=== PATIENT | male | born 1995 | race Caucasian/White ===

== ENCOUNTER 2017-06-15 11:06 | Observation (INO) | payer OTHER ==
--- NOTE | 2017-06-15 11:28 | EDPHY ---
H & P Stated Complaint: cough/fever chest pain/dyspnea/surgery 2 weeks ago Time Seen by Provider: 06/15/17 11:27 HPI/ROS: HPI: This is a 21-year-old male who presents with Chief Complaint: cough/fever chest pain/dyspnea/surgery 2 weeks ago Location: Chest Quality: Cough Duration: 1 day Signs and Symptoms: no shortness of breath at rest, no shortness of breath on exertion, + nonproductive cough, + pleuritic chest pain, no palpitations, no lower extremity edema, no wheezing, no orthopnea, no paroxysmal nocturnal dyspnea, + fever, no injury/trauma, no hemoptysis, no carpal pedal spasms Timing: Acute, constant Severity: Moderate Context: Patient reports that he status post appendectomy 2 weeks ago presents with sudden onset of fever yesterday of 103 F oral accompanied by generalized body aches, fatigue and nonproductive cough. Patient reports that his roommate had similar symptoms that started 2 days ago. His roommate went to the hospital , given IV fluids and diagnosed with a viral syndrome. Patient reports that he took ibuprofen last night and his fever went away. He reports he has been drinking lots of Pedialyte fluids to prevent dehydration. He denies lower extremity edema/abdominal pain/nausea/vomiting. No history of lung disease. He complains of pain with coughing anterior and posterior chest. Modifying Factors: See above Comment: ROS: see HPI Constitutional:+ fever, no chills, no weight loss Eyes: No blurred vision Respiratory: No shortness of breath, + cough Cardiovascular: + chest pain, no palpitations, no lower extremity edema Gastrointestinal: No nausea, no vomiting, no diarrhea Genitourinary: No dysuria Extremities: No myalgias Neurologic: No weakness, no numbness Skin: No rashes Hematologic: No bruising, no bleeding MEDICAL/SURGICAL/SOCIAL HISTORY: Medical history: Generally healthy. Does not take any regular medications. Surgical history: Appendectomy Social history: Former smoker. Family history noncontributory CONSTITUTIONAL: Polite and cooperative ill but nontoxic-appearing teenage white male, awake and alert, no obvious distress HEENT: Atraumatic and normocephalic, PERRL, EOMI. Nares patent; no rhinorrhea; no nasal mucosal edema. Tympanic membranes clear. Oropharynx clear, no tonsillar hypertrophy; no exudate and moist pink mucosa. Airway patent. No lymphadenopathy. No meningismus. Cardiovascular: Normal S1/S2, regular rate, regular rhythm, without murmur rub or gallop. PULMONARY/CHEST: Symmetrical and nontender. Clear to auscultation bilaterally. Good air movement. No accessory muscle usage. ABDOMEN: Soft, nondistended, nontender, no rebound, no guarding, no peritoneal signs, no masses or organomegaly. No CVAT. EXTREMITIES: 2/2 pulses, strength 5/5, no deformities, no clubbing, no cyanosis or edema. NEUROLOGICAL: no focal neuro deficits. GCS 15. SKIN: Warm and dry, no erythema. no rash. Good capillary refill. Source: Patient Exam Limitations: No limitations - Personal History Current Tetanus/Diphtheria Vaccine: Yes - Medical/Surgical History Hx Asthma: No Hx Chronic Respiratory Disease: No Hx Diabetes: No Hx Cardiac Disease: No Hx Renal Disease: No Hx Cirrhosis: No Hx Alcoholism: No Hx HIV/AIDS: No Hx Splenectomy or Spleen Trauma: No Other PMH: appy - Social History Smoking Status: Former smoker Constitutional: Initial Vital Signs Temperature (C) 36.4 C 06/15/17 11:10 Heart Rate 77 06/15/17 11:10 Respiratory Rate 18 06/15/17 11:10 Blood Pressure 123/74 H 06/15/17 11:10 O2 Sat (%) 98 06/15/17 11:10 O2 Delivery Mode Room Air Allergies/Adverse Reactions: No Known Allergies Allergy (Verified 06/15/17 11:09) Home Medications: Medication Instructions Recorded NK [No Known Home Meds] 06/15/17 Medical Decision Making - Diagnostics EKG Interpretation: 12 lead EKG: Indication: Chest pain Rhythm: Normal sinus rhythm, rate 88 beats per minute [place]: Normal Intervals: Normal QRS: Normal ST segments: Normal T-waves: normal INTERPRETATION: Normal EKG The 12 lead EKG was interpreted by myself and with attending Imaging Results: Imaging Impressions Chest X-Ray 06/15/17 11:28 Impression: Progressive pneumonia x 3 weeks. ED Course/Re-evaluation: Vital signs reviewed and stable. O2 sats 90% on room air Given 1 L normal saline, p.o. Percocet, IV Toradol 30 mg EKG, Labs including D-dimer to rule out VTE (no tachycardia/hypoxia/lower extremity edema), chest x-ray ordered 1146: Labs reviewed show WBC of 19.15 with left shift; lactic acid 2.5; D- dimer unremarkable Normal saline 30 mL per kg ordered; given 2.5 L of normal saline Chest x-ray my read shows bilateral pneumonia; blood cultures ordered; IV Rocephin and Zithromax given. 1230: ED decision to consult for admission. hypoxia; elevated lactic acid with bilateral pneumonia. Spoke with Susan who kindly agrees to admit patient to Dr. Ortega and provide further care. This patient was seen under the supervision of my secondary supervising physician. I evaluated care for this patient independently. Discussed this patient with Dr. Carter who did not see the patient. Differential Diagnosis: Adult fever including but not limited to viral syndromes including influenza, bronchitis, pulmonary embolism, pneumonia and sepsis. - Data Points Laboratory Results: Laboratory Results 06/15/17 11:35 06/15/17 11:35 06/15/17 06/15/17 06/15/17 11:37 11:35 11:35 WBC RBC Hgb Hct MCV MCH MCHC RDW Plt Count MPV Neut % (Auto) Lymph % (Auto) [place] % (Auto) Eos % (Auto) Baso % (Auto) Nucleat RBC Rel Count Absolute Neuts (auto) Absolute Lymphs (auto) Absolute Monos (auto) Absolute Eos (auto) Absolute Basos (auto) Absolute Nucleated RBC Immature Gran % Immature Gran # D-Dimer 0.29 ug/mLFEU ug/mLFEU (0.00-0.50) VBG Lactic Acid Sodium 142 mEq/L mEq/L (135-145) Potassium 4.2 mEq/L mEq/L (3.5-5.2) Chloride 102 mEq/L mEq/L (97-110) Carbon Dioxide 25 mEq/l mEq/l (22-31) Anion Gap 15 mEq/L mEq/L (8-16) BUN 12 mg/dL mg/dL (7-23) Creatinine 0.9 mg/dL mg/dL (0.7-1.3) Estimated GFR > 60 Glucose 87 mg/dL mg/dL (70-100) Calcium 9.7 mg/dL mg/dL (8.5-10.4) Nasal Influenza A PCR NEGATIVE FOR FLU A (NEGATIVE) Nasal Influenza B PCR NEGATIVE FOR FLU B (NEGATIVE) 06/15/17 06/15/17 11:35 11:35 WBC 19.15 10^3/uL H 10^3/uL (3.80-9.50) RBC 5.21 10^6/uL 10^6/uL (4.40-6.38) Hgb 16.6 g/dL g/dL (13.7-17.5) Hct 46.3 % % (40.0-51.0) MCV 88.9 fL fL (81.5-99.8) MCH 31.9 pg pg (27.9-34.1) MCHC 35.9 g/dL g/dL (32.4-36.7) RDW 11.9 % % (11.5-15.2) Plt Count 227 10^3/uL 10^3/uL (150-400) MPV 10.0 fL fL (8.7-11.7) Neut % (Auto) 78.7 % H % (39.3-74.2) Lymph % (Auto) 9.7 % L % (15.0-45.0) [place] % (Auto) 10.7 % % (4.5-13.0) Eos % (Auto) 0.3 % L % (0.6-7.6) Baso % (Auto) 0.2 % L % (0.3-1.7) Nucleat RBC Rel Count 0.0 % % (0.0-0.2) Absolute Neuts (auto) 15.07 10^3/uL H 10^3/uL (1.70-6.50) Absolute Lymphs (auto) 1.86 10^3/uL 10^3/uL (1.00-3.00) Absolute Monos (auto) 2.05 10^3/uL H 10^3/uL (0.30-0.80) Absolute Eos (auto) 0.05 10^3/uL 10^3/uL (0.03-0.40) Absolute Basos (auto) 0.04 10^3/uL 10^3/uL (0.02-0.10) Absolute Nucleated RBC 0.00 10^3/uL 10^3/uL (0-0.01) Immature Gran % 0.4 % % (0.0-1.1) Immature Gran # 0.08 10^3/uL 10^3/uL (0.00-0.10) D-Dimer VBG Lactic Acid 2.5 mmol/L H mmol/L (0.7-2.1) Sodium Potassium Chloride Carbon Dioxide Anion Gap BUN Creatinine Estimated GFR Glucose Calcium Nasal Influenza A PCR Nasal Influenza B PCR Medications Given: Discontinued Medications Sodium Chloride (Ns) 1,000 mls @ 0 mls/hr IV EDNOW ONE; Wide Open PRN Reason: Protocol Stop: 06/15/17 11:37 Last Admin: 06/15/17 11:48 Dose: 1,000 mls Sodium Chloride (Ns) 1,000 mls @ 0 mls/hr IV EDNOW ONE; Wide Open PRN Reason: Protocol Stop: 06/15/17 11:47 Last Admin: 06/15/17 11:53 Dose: 1,000 mls Ketorolac Tromethamine (Toradol) 30 mg IVP EDNOW ONE Stop: 06/15/17 11:37 Last Admin: 06/15/17 11:48 Dose: 30 mg Oxycodone/Acetaminophen (Percocet 5/325) 1 tab PO EDNOW ONE Stop: 06/15/17 11:37 Last Admin: 06/15/17 11:49 Dose: 1 tab Departure - Departure Disposition: [facility] Inpatient Acute Clinical Impression: Hypoxia, SIRS (systemic inflammatory response syndrome) Bilateral pneumonia Qualifiers: Pneumonia type: due to unspecified organism Lung location: lower lobe of lung Qualified Code(s): J18.1 - Lobar pneumonia, unspecified organism Condition: Fair
[2017-06-15] MEDS ORDERED: KETOROLAC 30 MG/1 ML SDV IVP ONE (11:36)
[2017-06-15] MEDS ORDERED: NS 1,000 ML IV ONE ×2 (11:36→11:46)
[2017-06-15] MEDS ORDERED: OXYCODONE/APAP 5/325 TAB PO ONE (11:36)
--- NOTE | 2017-06-15 11:37 | CPEKG ---
Heart Rate: 88 RR Interval: 682 P-R Interval: 160 QRSD Interval: 92 QT Interval: 344 QTC Interval: 417 P [place]: 66 QRS [place]: 83 T Wave [place]: 45 EKG Severity - NORMAL ECG - EKG Impression: SINUS RHYTHM Electronically Signed By: Georgia Carter 16-Jun-2017 10:45:22
[2017-06-15 11:43] LABS: PLATELET COUNT 227 10^3/uL (150-400)
[2017-06-15] MEDS ORDERED: NS 500 ML IV ONE (12:20)
[2017-06-15] MEDS ORDERED: AZITHROMYCIN IV 500 MG in D5W 250 ML IV ONE (12:25)
[2017-06-15] MEDS ORDERED: cefTRIAXone 2 GM in STERILE WATER INJ 20 ML IV ONE (12:25)
[2017-06-15] MEDS ORDERED: ONDANSETRON 4 MG/2 ML VIAL IVP PRN (13:08)
--- NOTE | 2017-06-15 13:26 | GHP ---
[f rep st] HISTORY AND PHYSICAL DATE OF ADMISSION: 06/15/2017 CHIEF COMPLAINT: Fever and cough. HISTORY OF PRESENT ILLNESS: This is a 21-year-old male who underwent appendectomy a little over 2 we eks ago. Presented to the hospital today with fever and cough. He first developed some night sweats about 2 days ago. Last night, he had a temperature at home of 103. Today, he continued to have a f ever as well as productive cough. He has some mild diarrhea. Denies any joint pain. Denies any josephine hes. PAST MEDICAL HISTORY: Unremarkable. PAST SURGICAL HISTORY: Recent appendectomy. HOME MEDICATIONS: None. ALLERGIES: No known drug allergies. SOCIAL HISTORY: He is a [employer] student, studying finance. He denies any alcohol, tobacco, or illicit dr ug use. FAMILY HISTORY: Reviewed and noncontributory. REVIEW OF SYSTEMS: Comprehensive 10-point review of systems done and is negative, except for as ment ioned in the HPI. PHYSICAL EXAMINATION: VITAL SIGNS: Blood pressure 108/76, pulse 93, respiratory rate 18, O2 saturat ion 96% on room air. GENERAL: Ill appearing. HEAD: Normocephalic, atraumatic. EYES: PERRLA. Sc lerae anicteric. MOUTH: Dry oral mucosa. NECK: Supple. No lymphadenopathy. CARDIOVASCULAR: S1, S2. No JVD. No lower extremity edema. PULMONARY: Coarse breath sounds bilaterally with some expi ratory wheezes. Slight respiratory distress. ABDOMEN: Soft, nontender, nondistended. No guarding or rebound tenderness. Normoactive bowel sounds. EXTREMITIES: No clubbing or cyanosis. NEURO: Cr anial nerves 2-12 grossly intact. No focal motor or sensory deficits. SKIN: Clear. No rashes. DIAGNOSTICS: WBC is 19.1, hemoglobin 16.6, hematocrit 46.6, platelets 227. D-dimer was negative. V enous lactic acid was elevated at 2.5, sodium 142, potassium 4.2, chloride 102, CO2 25, BUN 12, creat inine 0.9, glucose 87. Influenza A and B by PCR was negative. Blood culture has been ordered and is pending. Chest x-ray, which I visualized and personally interpreted, does show a posterior right lower lobe in filtrate, as well as a left lower lobe infiltrate. EKG, which I visualized and personally interpreted, shows sinus rhythm, rate 88 beats per minute. No acute ischemic changes. ASSESSMENT AND PLAN: 1. This is a 21-year-old male, presented to the hospital with fever, tachypnea, leukocytosis consist ent with systemic inflammatory response syndrome/sepsis in the setting of suspected community-acquire d pneumonia. Plan: The patient has been started on azithromycin and ceftriaxone in the emergency de partment, which will be continued. We will also order a respiratory viral PCR panel. 2. Slight respiratory distress with wheezing and coarse breath sounds. Plan: We will start Mucinex as well as nebulizer treatments for wheezing. The patient will be placed on observation status pending further stabilization and workup. /[id number]/MODL
[2017-06-15] MEDS: guaiFENesin 600 MG TAB.ER PO SCH ×2 (15:40→22:08)
[2017-06-15] MEDS: ALBUTEROL 3 ML DEYVIAL IH PRN (17:22)
[2017-06-15] MEDS: ACETAMINOPHEN 325 MG TAB PO PRN (18:39)
[2017-06-15] MEDS: oxyCODONE IR 5 MG TAB PO PRN (18:39)
[2017-06-15] MEDS ORDERED: KETOROLAC 15 MG/1 ML SDV IVP PRN (23:54)
[2017-06-16] MEDS: ACETAMINOPHEN 325 MG TAB PO PRN (03:22)
[2017-06-16] MEDS: oxyCODONE IR 5 MG TAB PO PRN (03:23)
[2017-06-16 04:32] LABS: PLATELET COUNT 172 10^3/uL (150-400)
[2017-06-16] MEDS ORDERED: AZITHROMYCIN IV 500 MG in D5W 250 ML IV SCH (09:00)
--- NOTE | 2017-06-16 09:15 | HOSPPROG ---
Hospitalist Progress Note Assessment/Plan: 21 yo M w CAP sepsis: septic physiology has resolved cap: 7 days abx dispo: likely home today Subjective: symptomatically improved Objective: Vital Signs Temp Pulse Resp BP Pulse Ox 36.7 C 67 16 121/45 H 92 06/16/17 03:27 06/16/17 03:27 06/16/17 03:27 06/16/17 03:27 06/16/17 03:27 Laboratory Results 06/16/17 04:06 06/16/17 04:06 06/15/17 06/16/17 06/17/17 05:59 05:59 05:59 Intake Total 3450 Balance 3450 - Physical Exam Constitutional: no apparent distress, appears nourished Eyes: PERRL, anicteric sclera Ears, Nose, Mouth, Throat: moist mucous membranes, hearing normal Cardiovascular: regular rate and rhythym, no murmur, rub, or gallop Respiratory: rhonchi, other (crackles L base) Gastrointestinal: normoactive bowel sounds, soft, non-tender abdomen Genitourinary: no bladder fullness, No luna in urethra Skin: warm, normal color Musculoskeletal: full muscle strength Neurologic: AAOx3 Psychiatric: interacting appropriately ICD10 Worksheet Patient Problems: Problems Problem Status Onset Bilateral pneumonia Acute Hypoxia Acute SIRS (systemic inflammatory response syndrome) Acute Appendicitis Acute
[2017-06-16] MEDS: guaiFENesin 600 MG TAB.ER PO SCH (09:28)
--- NOTE | 2017-06-16 10:04 | GDS ---
[f rep st] DISCHARGE SUMMARY DISCHARGE DIAGNOSES: 1. Community-acquired pneumonia. 2. Recent appendectomy. 3. Sepsis. Please see admission history and physical by Dr. Chris Ortega. The patient presented with shortness of breath, cough, found to have a left lower lobe infiltrate on chest x-ray and leukocytosis and elevat ed lactate that resolved with fluid resuscitation. This meets the criteria of sepsis that had [facility] ed at the time of discharge. The patient was discharged home on Augmentin and zithro to complete a t otal of a 7-day course of antibiotics. /[id number]/MODL
[2017-06-16 10:06] VITALS: BP 98/55
[2017-06-16] MEDS: ALBUTEROL 3 ML DEYVIAL IH PRN (10:41)
--- NOTE | 2017-06-16 11:00 | ASMTLACE ---
LACE Length of stay for Answers: Less than 1 day current admission Acuity / Level of Answers: No Care: Did the patient have an inpatient admission? Date Signed: 06/16/2017 10:59 AM Electronically Signed By:ERIC Bolaños
--- NOTE | 2017-06-16 11:15 | ASDISCHSUM ---
Discharge Information Plan Status:Home with No Needs Medically Cleared to Leave:06/16/2017 Discharge Date:06/16/2017 CM D/C Disposition:Home, Routine, Self-Care ADT D/C Disposition: Projected Discharge Date:06/16/2017 Transportation at D/C:Family Discharge Delay Reason: Follow-Up Date:06/16/2017 Discharge Slot: Final Diagnosis: Placement Information Patient Contact Information Contact Name:DURAN Relationship:Mother Address:[address] City:[place] Alternate Phone: State/Zip Code:[place] [address] Email: Financial Information Financial Class:HMO and PPO Plans Primary Plan Desc:[facility] [employer] PLAN Primary Plan Number:[id number] Secondary Plan Desc: Secondary Plan Number: Assessment Information LACE LACE Length of stay for Answers: Less than 1 day current admission Acuity / Level of Answers: No Care: Did the patient have an inpatient admission? Date Signed: 06/16/2017 10:59 AM Electronically Signed By:ERIC Bolaños Intervention Information
== END 2017-06-16 12:25 | disposition home or self-care (01) ==
LOC: INTOOBSV 12:32 → F1N 14:11
PROVIDERS: ADMIT Family Medicine; ATTEND Internal Medicine
DX: A41.9 Sepsis, unspecified organism (principal); J18.9 Pneumonia, unspecified organism; E86.9 Volume depletion, unspecified; Z98.890 Other specified postprocedural states
CPT/HCPCS: 71046; 93005; 96361; 96374; 99285; G0378; J0456; J0696; J1885; J7613